=== PATIENT | female | born 1995 ===

== ENCOUNTER 2016-12-22 16:42 | Emergency (ER) | payer OTHER ==
[~2016-12-22] VITALS: Ht 160 cm; Wt 77.1 kg
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
[2016-12-22 18:06] LABS: *URINE HCG, QUAL NEGATIVE (NEGATIVE)
--- NOTE | 2016-12-22 19:27 | NUR ---
Patient discharged to home in stable conditon. Written and verbal after care instructions given. Patient verbalizes understanding of instructions.
[2016-12-22 19:29] VITALS: BP 124/74
== END 2016-12-22 19:29 | disposition home or self-care (01) ==
LOC: ER 16:50
DX: M54.9 Dorsalgia, unspecified (principal); V49.9XXA Car occupant (driver) (passenger) injured in unspecified traffic accident, initial encounter; Y93.89 Activity, other specified; Y92.413 State road as the place of occurrence of the external cause; Y99.9 Unspecified external cause status
CPT/HCPCS: 72072; 72100; 84703; A4663